=== PATIENT | female | born 1955 | race Caucasian/White ===

== ENCOUNTER 2016-12-09 10:12 | Emergency (ER) | payer MEDICARE, BC ==
[2016-12-09] MEDS ORDERED: Sodium Chloride 0.9% 10 ML Syringe FLUSH PRN (11:22)
[2016-12-09] MEDS ORDERED: Sodium Chloride 0.9% 1,000 ML IV SCH (11:30)
--- NOTE | 2016-12-09 12:07 | CR ---
Chest 2V HISTORY: Pain COMPARISON: None FINDINGS: Dialysis type catheter on the right distal tip overlies superior vena cava. Cardiac size a nd pulmonary vessels normal. No focal infiltrates, effusions or pneumothorax. Impression: No acute pulmonary disease.
[2016-12-09] MEDS ORDERED: Piperacillin/Tazobactam 3.375 GM in Sodium Chloride 0.9% 50 ML IV ONE (12:31)
[2016-12-09] MEDS ORDERED: Piperacillin/Tazobactam/Dext 3.375 GM in Premix Bag 1 BAG IV ONE (13:00)
--- NOTE | 2016-12-09 13:16 | EDM.PDOC ---
ED HPI GENERAL MEDICAL PROBLEM - General Chief Complaint: General Stated Complaint: NAUSEA Time Seen by Provider: 12/09/16 11:06 Source of Information: Reports: Patient History Limitations: Reports: No Limitations - History of Present Illness INITIAL COMMENTS - FREE TEXT/NARRATIVE: This patient presents with a history of vomiting. 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 She is a dialysis patient. 2 days ago she had dry heaves and this caused her to miss her dialysis appointment. This morning she went to dialysis and they dialyzed her for just 2 hours. She's had problems with her ports with infections including one episode with a peritoneal dialysis. Her present port was placed approximately 2 weeks ago. Her blood pressure at dialysis was as low as 85/42. She was also noted to be febrile. - Related Data Allergies Allergy/AdvReac Type Severity Reaction Status Date / Time Sulfa (Sulfonamide Allergy Hives Verified 05/29/15 07:21 Antibiotics) Home Meds: Home Meds Aspirin [Adult Low Dose Aspirin EC] 2 tab PO BEDTIME 05/28/15 [History] Cetirizine HCl [Zyrtec] 10 mg PO DAILY 05/28/15 [History] Levothyroxine [Synthroid] 100 mcg PO DAILY 05/28/15 [History] Lisinopril/Hydrochlorothiazide [Lisinopril-Hctz 20-12.5 mg Tab] 1 tab PO DAILY 05/28/15 [History] Montelukast [Singulair] 10 mg PO BEDTIME 05/28/15 [History] Calcium Acetate [PhosLo] 3 tab PO ASDIRECTED 12/09/16 [History] amLODIPine Besylate [Amlodipine Besylate] 1 tab PO DAILY 12/09/16 [History] Past Medical History HEENT History: Reports: Hard of Hearing, Impaired Vision Cardiovascular History: Reports: Hypertension Genitourinary History: Reports: Dialysis, Renal Disease, Other (See Below) Other Genitourinary History: end stage renal disease Musculoskeletal History: Reports: Fracture Endocrine/Metabolic History: Reports: Hypothyroidism Hematologic History: Reports: Anesthesia Reaction, Anticoagulation Therapy Dermatologic History: Reports: Other (See Below) Other Dermatologic History: rowsasa - Infectious Disease History Infectious Disease History: Reports: Chicken Pox, Measles, Mumps - Past Surgical History Female Surgical History: Reports: Section Social & Family History - Tobacco Use Smoking Status *Q: Never Smoker Second Hand Smoke Exposure: No - Caffeine Use Caffeine Use: Reports: None - Alcohol Use Days Per Week of Alcohol Use: 7 Number of Drinks Per Day: 1 Total Drinks Per Week: 7 - Recreational Drug Use Recreational Drug Use: No ED ROS GENERAL - Review of Systems Review Of Systems: See Below Constitutional: Reports: Fever, Chills HEENT: Reports: No Symptoms Respiratory: Reports: No Symptoms Cardiovascular: Reports: No Symptoms Endocrine: Reports: No Symptoms GI/Abdominal: Reports: Nausea, Vomiting : Reports: No Symptoms Musculoskeletal: Reports: No Symptoms Skin: Reports: No Symptoms Neurological: Reports: No Symptoms ED EXAM, GENERAL - Physical Exam Exam: See Below Exam Limited By: No Limitations General Appearance: Alert, Mild Distress, Other (Chronically ill appearing) Eye Exam: Bilateral Eye: Normal Inspection Ears: Normal TMs Nose: Normal Inspection Throat/Mouth: Other (Dry mouth) Head: Atraumatic Neck: Normal Inspection Respiratory/Chest: No Respiratory Distress, Lungs Clear Cardiovascular: Regular Rate, Rhythm, Other (There is a port in the right subclavian area a) Neurological: Alert Psychiatric: Normal Affect Skin Exam: Warm, Dry Course - Vital Signs Text/Narrative:: Discussion with Dr. Pate The frozen meat cutter at [facility]. He requested Zosyn and vancomycin. She was given Zosyn 3.375 and vancomycin [address] Palacios the hospitalist in [place] who accepted the patient. Last Recorded V/S: Last Vital Signs Temp 39.6 C H 12/09/16 10:52 Pulse 106 H 12/09/16 10:52 Resp 16 12/09/16 10:52 BP 138/66 12/09/16 10:52 Pulse Ox 95 12/09/16 10:52 - Orders/Labs/Meds Orders: Active Orders 24 hr Category Date Time Status EKG Documentation Completion [RC] ASDIRECTED Care 12/09/16 11:18 Active CULTURE BLOOD [BC] Urgent Lab 12/09/16 12:19 Received CULTURE BLOOD [BC] Urgent Lab 12/09/16 12:19 Received INFLUENZA A+B AG SCREEN [RM] Urgent Lab 12/09/16 12:47 Ordered UA W/MICROSCOPIC [URIN] Urgent Lab 12/09/16 11:18 Uncollected Piperacillin/Tazobactam/Dext [Zosyn in Dextrose Iso- Med 12/09/16 13:00 Active Osmotic 3.375 GM] 3.375 gm Premix Bag 1 bag IV ONETIME Sodium Chloride 0.9% [Normal Saline] 1,000 ml Med 12/09/16 11:30 Active IV ASDIRECTED Sodium Chloride 0.9% [Saline Flush] Med 12/09/16 11:22 Active 10 ml FLUSH ASDIRECTED PRN Vancomycin 1 gm Med 12/09/16 12:31 Active Sodium Chloride 0.9% [Normal Saline] 250 ml IV ONETIME Blood Culture x2 Reflex Set [OM.PC] Urgent Oth 12/09/16 11:18 Ordered Saline Lock Insert [OM.PC] Urgent Oth 12/09/16 11:22 Ordered EKG 12 Lead [EK] Urgent Ther 12/09/16 11:18 Ordered Medication Orders Sodium Chloride (Normal Saline) 1,000 mls @ 999 mls/hr IV ASDIRECTED ZORA Last Admin: 12/09/16 12:41 Dose: 999 mls/hr Vancomycin HCl 1 gm/ Sodium (Chloride) 250 mls @ 150 mls/hr IV ONETIME ONE Stop: 12/09/16 14:10 Piperacillin/Tazobactam/ (Dextrose 3.375 gm/ Premix) 50 mls @ 100 mls/hr IV ONETIME ONE Stop: 12/09/16 13:29 Last Admin: 12/09/16 12:40 Dose: 100 mls/hr Sodium Chloride (Saline Flush) 10 ml FLUSH ASDIRECTED PRN PRN Reason: Keep Vein Open Labs: Laboratory Tests 12/09/16 12/09/16 12/09/16 Range/Units 12:19 12:19 12:19 WBC 16.8 H (4.5-11.0) K/uL RBC 3.37 (3.30-5.50) M/uL Hgb 10.4 L D (12.0-15.0) g/dL Hct 31.8 L (36.0-48.0) % MCV 94 (80-98) fL MCH 31 (27-31) pg MCHC 33 (32-36) % Plt Count 211 (150-400) K/uL Neut % (Auto) 93 H (36-66) % Lymph % (Auto) 2 L (24-44) % Walton % (Auto) 5 (2-6) % Eos % (Auto) 0 L (2-4) % Baso % (Auto) 0 (0-1) % Sodium 135 L (140-148) mmol/L Potassium 3.8 (3.6-5.2) mmol/L Chloride 95 L (100-108) mmol/L Carbon Dioxide 28 (21-32) mmol/L Anion Gap 15.8 H (5.0-14.0) mmol/L BUN 41 H (7-18) mg/dL Creatinine 7.2 H* (0.6-1.0) mg/dL Est Cr Clr Drug Dosing 7.58 mL/min Estimated GFR (MDRD) 6 L (>60) Glucose 110 H (74-106) mg/dL Lactic Acid 4.0 H (0.4-2.0) mmol/L Calcium 8.4 L (8.5-10.1) mg/dL Total Bilirubin 0.7 (0.2-1.0) mg/dL AST 146 H (15-37) U/L ALT 102 H (12-78) U/L Alkaline Phosphatase 100 (46-116) U/L Troponin I < 0.017 (0.000-0.056) ng/mL Total Protein 6.9 (6.4-8.2) g/dL Albumin 2.5 L (3.4-5.0) g/dL Globulin 4.4 H (2.3-3.5) g/dL Albumin/Globulin Ratio 0.6 L (1.2-2.2) Meds: Medications Generic Name Dose Route Start Last Admin Trade Name Sola PRN Reason Stop Dose Admin Sodium Chloride 1,000 mls @ 999 mls/hr 12/09/16 11:30 12/09/16 12:41 Normal Saline IV 999 mls/hr ASDIRECTED ZORA Administration Vancomycin HCl 1 gm/ Sodium 250 mls @ 150 mls/hr 12/09/16 12:31 Chloride IV 12/09/16 14:10 ONETIME ONE Piperacillin/Tazobactam/ 50 mls @ 100 mls/hr 12/09/16 13:00 12/09/16 12:40 Dextrose 3.375 gm/ Premix IV 12/09/16 13:29 100 mls/hr ONETIME ONE Administration Sodium Chloride 10 ml 12/09/16 11:22 Saline Flush FLUSH ASDIRECTED PRN Keep Vein Open Discontinued Medications Generic Name Dose Route Start Last Admin Trade Name Freq PRN Reason Stop Dose Admin Piperacillin Sod/Tazobactam 50 mls @ 100 mls/hr 12/09/16 12:31 Sod 3.375 gm/ Sodium Chloride IV 12/09/16 13:00 ONETIME ONE Departure - Departure Time of Disposition: 13:28 Disposition: DC/Tfer to Acute Hospital 02 Condition: serious Clinical Impression: Sepsis - Discharge Information Forms: ED Department Discharge - My Orders Last 24 Hours: My Active Orders 12/09/16 11:18 EKG Documentation Completion [RC] ASDIRECTED UA W/MICROSCOPIC [URIN] Urgent Blood Culture x2 Reflex Set [OM.PC] Urgent EKG 12 Lead [EK] Urgent 12/09/16 11:22 Sodium Chloride 0.9% [Saline Flush] 10 ml FLUSH ASDIRECTED PRN Saline Lock Insert [OM.PC] Urgent 12/09/16 11:30 Sodium Chloride 0.9% [Normal Saline] 1,000 ml IV ASDIRECTED 12/09/16 12:19 CULTURE BLOOD [BC] Urgent CULTURE BLOOD [BC] Urgent 12/09/16 12:31 Vancomycin 1 gm Sodium Chloride 0.9% [Normal Saline] 250 ml IV ONETIME 12/09/16 12:47 INFLUENZA A+B AG SCREEN [RM] Urgent 12/09/16 13:00 Piperacillin/Tazobactam/Dext [Zosyn in Dextrose Iso-Osmotic 3.375 GM] 3.375 gm Premix Bag 1 bag IV ONETIME - Assessment/Plan Last 24 Hours: My Active Orders 12/09/16 11:18 EKG Documentation Completion [RC] ASDIRECTED UA W/MICROSCOPIC [URIN] Urgent Blood Culture x2 Reflex Set [OM.PC] Urgent EKG 12 Lead [EK] Urgent 12/09/16 11:22 Sodium Chloride 0.9% [Saline Flush] 10 ml FLUSH ASDIRECTED PRN Saline Lock Insert [OM.PC] Urgent 12/09/16 11:30 Sodium Chloride 0.9% [Normal Saline] 1,000 ml IV ASDIRECTED 12/09/16 12:19 CULTURE BLOOD [BC] Urgent CULTURE BLOOD [BC] Urgent 12/09/16 12:31 Vancomycin 1 gm Sodium Chloride 0.9% [Normal Saline] 250 ml IV ONETIME 12/09/16 12:47 INFLUENZA A+B AG SCREEN [RM] Urgent 12/09/16 13:00 Piperacillin/Tazobactam/Dext [Zosyn in Dextrose Iso-Osmotic 3.375 GM] 3.375 gm Premix Bag 1 bag IV ONETIME
[2016-12-09 13:19] VITALS: BP 151/74
== END 2016-12-09 13:45 ==
LOC: JP.ED 10:12
DX: A41.9 Sepsis, unspecified organism (principal); N18.6 End stage renal disease; I12.0 Hypertensive chronic kidney disease with stage 5 chronic kidney disease or end stage renal disease; E03.9 Hypothyroidism, unspecified; Z79.899 Other long term (current) drug therapy; Z88.2 Allergy status to sulfonamides; Z79.01 Long term (current) use of anticoagulants; Z79.82 Long term (current) use of aspirin
CPT/HCPCS: 36415; 71020; 80053; 83605; 84484; 85025; 87040; 87804; 93005; 93010; 96361; 96365; 96375; 99284; J2543; J3370; J7040; J7050; 99285

== ENCOUNTER 2021-05-31 08:52 | Day surgery (SDC) | payer MEDICARE, BC ==
[2021-05-31] MEDS ORDERED: Sodium Chloride 0.9% 1,000 ML IV SCH (09:30)
[2021-05-31] MEDS ORDERED: Propofol 200 MG/20 ML SDV ONE (09:35)
[2021-05-31] MEDS ORDERED: Midazolam 1 MG/ML 2 ML SDV ONE (09:35)
[2021-05-31] MEDS ORDERED: fentaNYL 100 MCG/2 ML SDV ONE (09:35)
--- NOTE | 2021-05-31 12:03 | OR ---
DATE OF PROCEDURE: 05/31/2021 SURGEON: Tomer Richards MD PROCEDURES: 1. Esophagogastroduodenoscopy. 2. Colonoscopy. FINDINGS: 1. Mild inflammation at GE junction concerning for reflux disease (biopsied in all 4 quadrants using cold biopsy forceps). 2. Diverticulosis, mild, limited to sigmoid colon without evidence of diverticulitis or bleeding. COMPLICATIONS: None. RESIDENT CARE COORDINATOR: None. ANESTHESIA: MAC. PREPROCEDURE DIAGNOSIS: Epigastric pain, diarrhea. POSTPROCEDURE DIAGNOSIS: Epigastric pain, diarrhea. RISKS: Risks, benefits, alternatives, and limitations including, but not limited to infection, bleeding, perforation, false positive, and false negatives were explained to the patient and the patient wished to proceed. PROCEDURE IN DETAIL: The patient was placed in left lateral decubitus position. EGD scope was introduced atraumatically to the second part of the duodenum. No evidence of duodenitis or ulceration were noted. Within the stomach itself, there was no gastritis. No ulceration. The patient had a very small amount of inflammation in the GE junction with slightly irregular Z-line concerning for reflux disease, biopsied in all 4 quadrants using cold biopsy forceps. Air was removed from the stomach. The esophagus was inspected without abnormality. Digital rectal exam performed next. The scope was advanced atraumatically to the ileocecal valve. A photo was taken. The patient was noted have a tortuous sigmoid colon. No evidence of old or new blood. No masses. No polyps. The patient was noted to have diverticulosis described as mild, limited to sigmoid colon without evidence of diverticulitis or bleeding. No abnormalities on retroflexion. Greater than 8 minutes was spent removing the scope. The patient tolerated procedure well. Tomer Richards MD /[id number]
[2021-05-31 12:37] VITALS: BP 123/80; PULSE 55
== END 2021-05-31 13:05 | disposition home or self-care (01) ==
LOC: JP.SDS 08:52
PROVIDERS: ATTEND Surgery
DX: K57.30 Diverticulosis of large intestine without perforation or abscess without bleeding (principal); K22.70 Barrett's esophagus without dysplasia; K21.9 Gastro-esophageal reflux disease without esophagitis; I10 Essential (primary) hypertension; E03.9 Hypothyroidism, unspecified
CPT/HCPCS: 43239; 45378; 88305; J2250; J2704; J3010; J7030

== ENCOUNTER 2023-01-30 08:43 | Day surgery (SDC) | payer MEDICARE, BC ==
[~2023-01-30 08:43] MED LIST: Midazolam 1 MG/ML 2 ML SDV ONE; Propofol 200 MG/20 ML SDV ONE; fentaNYL 50 MCG/ML SDV ONE
[2023-01-30] MEDS ORDERED: Lactated Ringers 1,000 ML IV SCH (09:15)
[2023-01-30 11:22] VITALS: BP 159/76; PULSE 63
== END 2023-01-30 11:34 | disposition home or self-care (01) ==
LOC: JP.SDS 08:43
PROVIDERS: ATTEND Student in an Organized Health Care Education/Training Program
DX: K31.7 Polyp of stomach and duodenum (principal); K29.50 Unspecified chronic gastritis without bleeding; K31.89 Other diseases of stomach and duodenum; K22.70 Barrett's esophagus without dysplasia; N18.9 Chronic kidney disease, unspecified; I12.9 Hypertensive chronic kidney disease with stage 1 through stage 4 chronic kidney disease, or unspecified chronic kidney disease
CPT/HCPCS: 43239; 88305; 88342; 93005; J2250; J2704; J3010; J7120